=== PATIENT | female | born 1960 | race Caucasian/White ===

== ENCOUNTER 2018-11-16 16:02 | Outpatient (REF) | payer OTHER, SELFPAY ==
--- NOTE | 2018-11-16 15:45 | SKI_PTH ---
PATIENT: La Seth LOC: [facility] U#:[id number] AGE/SX: 58/F ROOM: RE11/16/[address]: Misha Estevez : 1960 BED: DIS: 11/16/2018 SPEC #: [id number] RECD: 11/17/18 12:40 STATUS: JAMEY RERoberto #: [id number] DEBORAH: 11/16/18 15:[address]: Misha Estevez DEPT: Surgical Specimen RECD BY: Mariella Malone ENTERED: 11/17/18 12:41 SP TYPE: [facility] DR: Kyler Peterson Tissues: 1 - SKIN BIOPSY(SHAVE/PUNCH) Procedures: SKIN LEVEL 4 Comments: [id number]
== END 2018-11-16 16:22 ==
LOC: NCHCN 16:02
PROVIDERS: Visit Provider Family Medicine
DX: L43.8 Other lichen planus (principal)
CPT/HCPCS: 88305

== ENCOUNTER 2020-02-19 10:32 | Outpatient (REF) | payer MEDICAID, SELFPAY ==
[2020-02-19 20:51] LABS: ALT 22 U/L (14-59); AST 23 U/L (15-37); Albumin 3.8 g/dL (3.4-5.0); Alkaline Phosphatase 100 U/L (46-116); Anion Gap 4.4 mmol/L (3-11); BUN 12 mg/dL (7-18); Bilirubin, Total 0.4 mg/dL (0.2-1.0); CO2 30.6 mmol/L (21.0-32.0); CREATININE 0.95 mg/dL (0.55-1.02); Calcium 9.2 mg/dL (8.5-10.1); Calculated LDL 195 mg/dL (<100); Chloride 102 mmol/L (98-107); Cholesterol 277 mg/dL (<200); Glucose 91 mg/dL (74-106); HDL Cholesterol 67 mg/dL (40-60); Potassium 4.7 mmol/L (3.5-5.1); Sodium 137 mmol/L (136-145); Total Protein 7.3 g/dL (6.4-8.2); Triglyceride 78 mg/dL (<150)
[2020-02-19 21:05] LABS: Hemoglobin A1C 5.6 % (3.8-5.6)
== END 2020-02-19 10:52 ==
LOC: NCHCN 10:32
PROVIDERS: Visit Provider Family Medicine
DX: R73.03 Prediabetes (principal); E66.9 Obesity, unspecified; Z13.220 Encounter for screening for lipoid disorders; Z00.00 Encounter for general adult medical examination without abnormal findings
CPT/HCPCS: 80053; 80061; 83036

== ENCOUNTER 2021-07-24 17:09 | Outpatient (REF) | payer MEDICAID, SELFPAY | END 2021-07-24 17:10 | disposition home or self-care (01) | LOC: NCHCN 17:09 | PROVIDERS: Visit Provider Registered Nurse | DX: R39.89 Other symptoms and signs involving the genitourinary system (principal); B37.3 Candidiasis of vulva and vagina | CPT/HCPCS: 87480; 87510; 87660 ==

== ENCOUNTER 2022-03-12 14:22 | Outpatient (REF) | payer MEDICAID, SELFPAY ==
[2022-03-12 20:50] LABS: ALT 19 U/L (14-59); AST 17 U/L (15-37); Albumin 3.7 g/dL (3.4-5.0); Alkaline Phosphatase 90 U/L (46-116); Anion Gap 7.6 mmol/L (3-11); BUN 15 mg/dL (7-18); Bilirubin, Total 0.4 mg/dL (0.2-1.0); CO2 29.4 mmol/L (21.0-32.0); CREATININE 0.8 mg/dL (0.55-1.02); Calcium 8.6 mg/dL (8.5-10.1); Calculated LDL 146 mg/dL (<100); Chloride 103 mmol/L (98-107); Cholesterol 241 mg/dL (<200); Glucose 97 mg/dL (74-106); HDL Cholesterol 54 mg/dL (40-60); Hemoglobin A1C 5.7 % (<5.7); Potassium 4.4 mmol/L (3.5-5.1); Sodium 140 mmol/L (136-145); Total Protein 6.9 g/dL (6.4-8.2); Triglyceride 209 mg/dL (<150)
== END 2022-03-12 14:23 | disposition home or self-care (01) ==
LOC: NCHCN 14:22
PROVIDERS: Visit Provider Family Medicine
DX: R73.03 Prediabetes (principal); E66.9 Obesity, unspecified; Z13.220 Encounter for screening for lipoid disorders; Z00.00 Encounter for general adult medical examination without abnormal findings
CPT/HCPCS: 80053; 80061; 83036

== ENCOUNTER 2022-09-08 13:02 | Outpatient (REF) | payer MEDICAID, SELFPAY ==
--- NOTE | 2022-09-08 12:00 | PAPFT_PTH ---
PATIENT: La Seth [facility] U[facility][id number] AGE/SX: 62/F ROOM: RE09/08/[address]: Misha Estevez : 1960 BED: DIS: 09/08/2022 SPEC #: [id number] RECD: 09/09/22 18:40 STATUS: JAMEY REQ #: [id number] DEBORAH: 09/08/22 12:[address]: Misha Estevez DEPT: [facility] Cytology RECD BY: Mariella Malone ENTERED: 09/09/22 18:40 SP TYPE: PAPFT OTHR DR: Kyler Peterson Tissues: 1 - CX/ENDOCX FOR PAP SMEARS Procedures: PAP THIN PREP/UVM Screening HPV DNA PROBE Comments:
== END 2022-09-08 13:03 | disposition home or self-care (01) ==
LOC: NCHCN 13:02
PROVIDERS: Visit Provider Family Medicine
DX: Z12.4 Encounter for screening for malignant neoplasm of cervix (principal); Z11.51 Encounter for screening for human papillomavirus (HPV)
CPT/HCPCS: 88142; 87624

== ENCOUNTER 2023-03-23 18:47 | Outpatient (REF) | payer MEDICAID, SELFPAY ==
[2023-03-23 15:41] LABS: ALT 38 U/L (14-59); AST 30 U/L (15-37); Albumin 3.4 g/dL (3.4-5.0); Alkaline Phosphatase 151 U/L (46-116); Anion Gap 4.4 mmol/L (3-11); BUN 13 mg/dL (7-18); Bilirubin, Total 0.3 mg/dL (0.2-1.0); CO2 32.6 mmol/L (21.0-32.0); Calcium 9.3 mg/dL (8.5-10.1); Calculated LDL 139 mg/dL (<100); Chloride 100 mmol/L (98-107); Cholesterol 203 mg/dL (<200); Glucose 105 mg/dL (74-106); HDL Cholesterol 47 mg/dL (40-60); Potassium 4.9 mmol/L (3.5-5.1); Sodium 137 mmol/L (136-145); TSH (W/Ref FT4) 2.27 uIU/mL (0.36-3.74); Total Protein 7.9 g/dL (6.4-8.2); Triglyceride 89 mg/dL (<150)
[2023-03-23 17:06] LABS: Vitamin D 25 Total 29.5 ng/mL (30-100)
== END 2023-03-23 18:48 | disposition home or self-care (01) ==
LOC: NCHCN 18:47
PROVIDERS: Visit Provider Family Medicine
DX: E78.00 Pure hypercholesterolemia, unspecified (principal); E55.9 Vitamin D deficiency, unspecified; R53.83 Other fatigue; E66.9 Obesity, unspecified
CPT/HCPCS: 80053; 80061; 82306; 84443

== ENCOUNTER 2023-05-10 14:41 | Outpatient (REF) | payer MEDICAID, SELFPAY ==
[2023-05-10 22:32] LABS: ALT 15 U/L (14-59); AST 26 U/L (15-37); Albumin 3.5 g/dL (3.4-5.0); Alkaline Phosphatase 102 U/L (46-116); Bilirubin, Direct 0.1 mg/dL (0.0-0.2); Bilirubin, Total 0.2 mg/dL (0.2-1.0); Total Protein 7.3 g/dL (6.4-8.2)
== END 2023-05-10 14:42 | disposition home or self-care (01) ==
LOC: NCHCN 14:41
PROVIDERS: PCP Family Medicine; Visit Provider Family Medicine
DX: R74.8 Abnormal levels of other serum enzymes (principal)
CPT/HCPCS: 80076

== ENCOUNTER 2024-03-28 16:28 | Outpatient (REF) | payer MEDICAID, SELFPAY ==
[2024-03-28 22:00] LABS: Abs Immature Grans 0.03 10^3/uL (0.0-0.06); Absolute Basophil Count 0.06 10^3/uL (0.0-0.2); Absolute Eosinophil Count 0.07 10^3/uL (0.0-0.7); Absolute Lymphocyte Count 2.07 10^3/uL (1.2-3.4); Absolute Monocyte Count 0.45 10^3/uL (0.1-0.8); Absolute Neutrophil Count 4.04 10^3/uL (1.2-6.7); Basophils % 0.9 %; HCT 41.6 % (36.0-46.0); HGB 13.6 g/dL (11.2-15.7); Immature Grans % 0.4 %; Lymphocytes % 30.8 %; MCH 29.2 pg (27.0-33.0); MCHC 32.7 % (32.0-36.0); MCV 89 fL (80-95); MPV 12.7 fL (8.0-11.0); Monocytes % 6.7 %; Neutrophils % 60.2 %; Platelet Count 192 10^3/uL (130-400); RBC 4.66 10^6/uL (3.93-5.22); RDW 12.8 % (11.7-14.6); RDW-SD 41.7 fL; WBC 6.72 10^3/uL (4.4-10.8)
[2024-03-28 22:17] LABS: Hemoglobin A1C 5.9 % (<5.7)
[2024-03-28 22:33] LABS: Vitamin D 25 Total 33.7 ng/mL (30-100)
[2024-03-28 22:39] LABS: ALT 23 U/L (14-59); AST 22 U/L (15-37); Albumin 3.8 g/dL (3.4-5.0); Alkaline Phosphatase 86 U/L (46-116); Anion Gap 4.1 mmol/L (3-11); BUN 15 mg/dL (7-18); Bilirubin, Total 0.3 mg/dL (0.2-1.0); CO2 28.9 mmol/L (21.0-32.0); Calcium 9.3 mg/dL (8.5-10.1); Calculated LDL 157 mg/dL (<100); Chloride 105 mmol/L (98-107); Cholesterol 256 mg/dL (<200); Estimated GFR 62.91 (mL/min/1.73m2); Ferritin 28 ng/mL (8-252); Glucose 115 mg/dL (74-106); HDL Cholesterol 69 mg/dL (40-60); Potassium 4.3 mmol/L (3.5-5.1); Sodium 138 mmol/L (136-145); TSH (W/Ref FT4) 2.81 uIU/mL (0.36-3.74); Total Protein 7.6 g/dL (6.4-8.2); Triglyceride 150 mg/dL (<150); Vitamin B12 456 pg/mL (193-986)
== END 2024-03-28 16:29 | disposition home or self-care (01) ==
LOC: NCHCN 16:28
PROVIDERS: PCP Family Medicine; Visit Provider Family Medicine
DX: R53.83 Other fatigue (principal); R73.03 Prediabetes; E78.00 Pure hypercholesterolemia, unspecified; G25.81 Restless legs syndrome; G60.9 Hereditary and idiopathic neuropathy, unspecified; E55.9 Vitamin D deficiency, unspecified
CPT/HCPCS: 80053; 80061; 82306; 82607; 82728; 83036; 83735; 84443; 85025

== ENCOUNTER 2025-07-10 17:34 | Outpatient (REF) | payer MEDICARE, SELFPAY ==
[2025-07-10 14:53] LABS: Hemoglobin A1C 5.8 % (<5.7)
[2025-07-10 15:04] LABS: ALT 23 U/L (14-59); AST 20 U/L (15-37); Albumin 3.8 g/dL (3.4-5.0); Alkaline Phosphatase 100 U/L (46-116); Anion Gap 4.9 mmol/L (3-11); BUN 12 mg/dL (7-18); Bilirubin, Total 0.5 mg/dL (0.2-1.0); CO2 32.1 mmol/L (21.0-32.0); Calcium 9.2 mg/dL (8.5-10.1); Calculated LDL 192 mg/dL (<100); Chloride 101 mmol/L (98-107); Cholesterol 285 mg/dL (<200); Estimated GFR 81.21 (mL/min/1.73m2); Glucose 99 mg/dL (74-106); HDL Cholesterol 65 mg/dL (>or=50); Potassium 4.7 mmol/L (3.5-5.1); Sodium 138 mmol/L (136-145); Total Protein 7.6 g/dL (6.4-8.2); Triglyceride 143 mg/dL (<150)
== END 2025-07-10 17:35 | disposition home or self-care (01) ==
LOC: NCHCN 17:34
PROVIDERS: PCP Family Medicine; Visit Provider Family Medicine
DX: E78.00 Pure hypercholesterolemia, unspecified (principal); R73.03 Prediabetes
CPT/HCPCS: 80053; 80061; 83036

== ENCOUNTER → 2025-08-15 11:17 | Outpatient (BNVA) | payer MEDICARE, SELFPAY | PROVIDERS: PCP Family Medicine; Referring Provider Family Medicine; Visit Provider Physical Therapy Assistant | DX: Z12.11 Encounter for screening for malignant neoplasm of colon (principal); Z86.0101 Personal history of adenomatous and serrated colon polyps; Z80.0 Family history of malignant neoplasm of digestive organs | CPT/HCPCS: S0285 ==

== ENCOUNTER 2025-08-20 09:19 | Day surgery (SDC) | payer MEDICARE, SELFPAY ==
--- NOTE | 2025-08-20 08:33 | W.ANESPRE ---
General Info Date of Service Date Performed: 08/20/25 Height: 5 ft 6 in Weight: 118.388 kg Body Mass Index (BMI): 42.1 Surgical Procedure: Operation Date: 08/20/25 10:05 Proposed Procedure Side Surgeon elizabeth Lyle MD Meds Allergies and Home Medications Allergies Allergy/AdvReac Type Severity Reaction Status Date / Time egg Allergy Unknown Unknown Verified 08/20/25 09:35 Home Medication ?Medication ?Instructions ?Recorded acetaminophen 500 mg tablet 500 mg PO Q6H PRN 08/02/25 (Tylenol Extra Strength) amitriptyline 25 mg tablet 25 mg PO QHS PRN 08/02/25 amlodipine 5 mg tablet 5 mg PO DAILY 08/02/25 buspirone 7.5 mg tablet 7.5 mg PO BID 08/02/25 cholecalciferol (vitamin D3) 50 50 mcg PO DAILY 08/02/25 mcg (2,000 unit) capsule citalopram 40 mg tablet 20 mg PO DAILY 08/02/25 lansoprazole 30 mg delayed 30 mg PO DAILY 08/02/25 release,disintegrating tablet methocarbamol 500 mg tablet 500 mg PO TID PRN 08/02/25 nystatin 100,000 unit/gram topical 1 applic topical DAILY PRN 08/02/25 cream bisacodyl 5 mg tablet,delayed 5 mg PO ONCE #4 tabs 08/15/25 release (Dulcolax (bisacodyl)) gabapentin 300 mg capsule 300 mg PO BID 08/15/25 polyethylene glycol 3350 17 17 g PO ONCE #238 grams 08/15/25 gram/dose oral powder Current Visit Medications: Current Medications Generic Name Dose Route Start Last Admin Trade Name Freq PRN Reason Stop Dose Admin Ringer's Solution 1,000 mls @ 80 mls/hr 08/20/25 06:00 IV 09/16/25 23:59 INFUSION LESLIE IV Miscellaneous Supplies 1 each 08/20/25 06:00 Iv Access IV 09/16/25 23:59 DIRECTED LESLIE Sodium Chloride 0 ml 08/20/25 06:00 Normal Saline Flush 10 Ml Syr IV 09/16/25 23:59 PRN PRN Sodium Chloride 0 ml 08/20/25 06:00 Normal Saline 10 Ml Vial IJ 09/16/25 23:59 DIRECTED PRN Sterile Water 0 ml 08/20/25 06:00 Water,Injection,Sterile 10 Ml Vial IJ 09/16/25 23:59 DIRECTED PRN FORMERLY [facility], 1928–1983 Medical History Medical History (Updated 08/17/25 @ 12:30 by Dale Mahnoey) History of blood disorder Pt. unaware of this Screening for malignant neoplasm of colon (~2015) 07/20/2016 Vitamin D deficiency Obesity Family history of breast cancer Anxiety Atrophic vaginitis Prediabetes Fibromyalgia Steatosis of liver Irritable bowel syndrome Systolic murmur Major depressive disorder Lesion of liver Lung nodule Motion sickness Low back pain Spinal stenosis of lumbar region Diverticulosis of colon Surgical History Surgical History Hx of colonoscopy Tobacco Smoking/Tobacco Use Status: Former Tobacco Use Passive smoking exposure: No Alcohol Alcohol Intake: never Substance Use Substance use: Never Substance use type: does not use Vital Signs and Lab Results Vital Signs Comment Vital Signs Comment:: Temp Pulse Resp BP Pulse Ox 36.4 C L 81 16 138/89 96 08/20/25 09:45 08/20/25 09:45 08/20/25 09:45 08/20/25 09:45 08/20/25 09:45 Anesthesia Assessment and Plan Anesthesia History Personal History: No History of Anesthesia Complications Family History: No Family History of Anesthesia Complications Exercise Tolerance Exercise Tolerance: Metabolic Equivalents>4 Pertinent Negatives Pertinent Negatives: No Symptoms of GERD Cardiac & Pulmonary Exam Cardiac Exam: Known Innocent Murmur Pulmonary Exam: Clear Bilateral Breath Sounds Implantable Cardiac Device Does patient have a Pacemaker or an ICD?: No Airway Exam Known Difficult Airway: No Mallampati Class: 2 Mouth Opening: Normal (> 3cm) Thyromental Distance: Greater than 3 cm Neck Range of Motion: Limited ROM Neck Circumference: Normal Teeth Condition: Normal Dentition ASA Classification ASA Score: ASA 3 Emergency Case?: No NPO Status NPO Status: NPO Clears >2 hours, Solids >8 hours Anesthesia Plan Resuscitation Status: Full Code Anesthesia Technique: General Anesthesia Airway Planned: Natural Airway Monitors Used: Standard Monitors Preoperative Comments:: PMH: Systolic murmur (no ECHO in system and not noted as auscultated on preop), clotting disorder (patient denies), anxiety, fibromyalgia, IBS, lung nodule, liver lesion, steatosis, spinal stenosis, motion sickness. PSH: colonoscopy (2018)
[2025-08-20 08:34] VITALS: BMI 42.1
[2025-08-20 09:45] VITALS: BP 138/89; PULSE 81; RESP 16; TEMP 36.4; O2SAT 96
[2025-08-20] MEDS: Lactated Ringers 1,000 ML 80 ML IV (10:00)
--- NOTE | 2025-08-20 10:14 | COLE_ITS ---
Date of service: 08/20/25 Time of Service: 10:14 Colonoscopy Report Procedure Description: PROCEDURES PERFORMED: 1. Colonoscopy PREOPERATIVE DIAGNOSIS: Surveillance colonoscopy, family history of colon cancer, colon polyps POSTOPERATIVE DIAGNOSIS: Sigmoid diverticulosis, grade 1 internal hemorrhoids SURGEON: Mari Lyle MD INDICATION FOR PROCEDURE: the patient is a 65-year-old woman with a personal history of adenomatous polyps and a family history of colon cancer in her mother and grandmother. She has no symptoms of concern. Last colonoscopy 7 years ago. FINDINGS: Normal terminal ileum. No polyps. Moderate diverticular changes isolated to the sigmoid colon only. Grade 1 internal hemorrhoids at all 3 columns. SURVEILLANCE interval/FOLLOW-UP: 5 years because of the history SPECIMENS: None EBL: Minimal COMPLICATIONS: None QUALITY of prep: Excellent Procedure in detail: The patient gave written consent and was in agreement with the indications, the potential risks as well as the benefits of the procedure. They were taken to the endoscopy suite and laid in the left lateral decubitus position. A timeout was performed and anesthesia was administered which was tolerated well. I started the procedure. Digital rectal and visual examination was performed and grossly within normal limits. A well-lubricated flexible colonoscope was then introduced and passed without any notable difficulty all the way to the cecum identified by the ileoc ecal valve and the appendiceal orifice. The terminal ileum was intubated and looked normal. The scope was then slowly withdrawn with the above-noted findings. The patient tolerated the procedure well and was taken to the PACU in hemodynamically stable condition.
--- NOTE | 2025-08-20 10:14 | W.PM.DSUDISC ---
Date of service: 08/20/25 Discharge Plan Disposition Patient Disposition: Home Condition: Good Discharge Details Attending Provider: Daryl Lyle Primary Care Provider: Misha Estevez Home Meds and New Rx's Prescriptions: No Action bisacodyl [Dulcolax (bisacodyl)] 5 mg tablet,delayed release (DR/EC) 5 mg PO ONCE Qty: 4 0RF Rx Instructions: Take per colonoscopy instructions provided by ordering providers office polyethylene glycol 3350 17 gram/dose powder 17 g PO ONCE Qty: 238 0RF Rx Instructions: Take per colonoscopy instructions provided by ordering providers office methocarbamol 500 mg tablet 500 mg PO TID PRN Rx Instructions: take one tablet by mouth three times a day as needed for back pain or muscle spasms citalopram 40 mg tablet 20 mg PO DAILY amlodipine 5 mg tablet 5 mg PO DAILY acetaminophen [Tylenol Extra Strength] 500 mg tablet 500 mg PO Q6H PRN amitriptyline 25 mg tablet 25 mg PO QHS PRN Rx Instructions: 1/2 to 1 tablet po every night nystatin 100,000 unit/gram cream 1 applic topical DAILY PRN buspirone 7.5 mg tablet 7.5 mg PO BID lansoprazole 30 mg tablet,disintegrat, delay rel 30 mg PO DAILY cholecalciferol (vitamin D3) 50 mcg (2,000 unit) capsule 50 mcg PO DAILY gabapentin 300 mg capsule 300 mg PO BID Discharge Instructions Additional Instructions: FINDINGS: No polyps. No cancer. Some hemorrhoid disease and diverticulosis was found today which is extremely common, benign and nothing needs to be done about these conditions. Because of the history, repeat a colonoscopy in 5 years. Activity:: Activity as Tolerated Diet:: As Tolerated Discharge Orders Discharge Orders: Discharge Order (Routine); Ordered 08/20/25 Ordered By: Daryl Lyle
[2025-08-20 10:43] VITALS: BP 117/66; PULSE 78; RESP 16; TEMP 36.3; O2SAT 98
[2025-08-20 11:04] VITALS: BP 117/72; PULSE 72; RESP 16; TEMP 36.6; O2SAT 96
--- NOTE | 2025-08-20 11:13 | W.ANESPOSTOP ---
Postoperative Evaluation Date, Time and Location Date Performed: 08/20/25 Time Performed: 10:44 Patient Location: Day Surgery Unit Vital Signs Most Recent Imported Vital Signs: Most Recent Vital Signs Temp Pulse Resp BP Pulse Ox 36.6 C 72 16 117/72 96 08/20/25 11:04 08/20/25 11:04 08/20/25 11:04 08/20/25 11:04 08/20/25 11:04 Pain Score Most Recent Pain Score: Most Recent Pain Score Pain Level 0 08/20/25 11:04 Assessment Mental Status: Awake (Alert & Oriented to Patient Baseline) Airway and Respiratory Function: Patent airway with normal (patient baseline) respiratory exam Cardiovascular Function: Hemodynamically Stable Hydration Status: Adequately Hydrated Nausea & Vomiting: No Nausea or Vomiting Pain: Pt. Denies Any Pain Peripheral Nerve Block: Patient did not receive a nerve block
== END 2025-08-20 11:15 | disposition home or self-care (01) ==
PROVIDERS: PCP Family Medicine; Visit Provider Student in an Organized Health Care Education/Training Program
PROC: 0DJD8ZZ Inspection of Lower Intestinal Tract, Via Natural or Artificial Opening Endoscopic (ICD-10-PCS; CPT 45378; principal; 2025-08-20 10:00)
DX: Z12.11 Encounter for screening for malignant neoplasm of colon (principal); Z80.0 Family history of malignant neoplasm of digestive organs; Z86.0101 Personal history of adenomatous and serrated colon polyps; K57.30 Diverticulosis of large intestine without perforation or abscess without bleeding; K64.8 Other hemorrhoids
CPT/HCPCS: G0105; J2704

== ENCOUNTER 2025-09-13 12:24 | Outpatient (REF) | payer MEDICARE, SELFPAY ==
[2025-09-13 15:18] LABS: TSH (W/Ref FT4) 2.49 uIU/mL (0.55-4.78)
== END 2025-09-13 12:25 | disposition home or self-care (01) ==
LOC: NCHCN 12:24
PROVIDERS: PCP Family Medicine; Visit Provider Family Medicine
DX: Z00.00 Encounter for general adult medical examination without abnormal findings (principal)
CPT/HCPCS: 84443